=== PATIENT | male | born 1970 | race Caucasian/White ===

== ENCOUNTER 2017-07-30 06:37 | Emergency (ER) | payer OTHER ==
[2017-07-30] MEDS ORDERED: Sodium Chloride 0.9% 1,000 ML IV ONE (06:41)
[2017-07-30] MEDS ORDERED: Ketorolac 30 MG/ML SDV IVPUSH ONE (06:41)
--- NOTE | 2017-07-30 06:43 | EDM.PDOC ---
<Tuan Valdovinos J - Last Filed: 07/30/17 06:41> ED HPI GENERAL MEDICAL PROBLEM - General Chief Complaint: Back Pain or Injury Stated Complaint: BACK PAIN Time Seen by Provider: 07/30/17 06:40 - History of Present Illness INITIAL COMMENTS - FREE TEXT/NARRATIVE: HISTORY AND PHYSICAL: History of present illness: Patient 47-year-old white male who is recovering drug addict was no other medical history who presents with cervix acute low back pain he states this occurred when he bent over this morning put on his socks he denies prior episodes of back pain he states this is so severe that he has difficulty walking he denies incontinence or retention bowel or bladder numbness he denies recent trauma denies urinary symptoms nausea vomiting fever chills abdominal pain or other complaints Review of systems: As per history of present illness and below otherwise all systems reviewed and negative. Past medical history: As per history of present illness and as reviewed below otherwise noncontributory. Surgical history: As per history of present illness and as reviewed below otherwise noncontributory. Social history: No reported history of drug or alcohol abuse. Family history: As per history of present illness and as reviewed below otherwise noncontributory. Physical exam: HEENT: Atraumatic, normocephalic, pupils reactive, negative for conjunctival pallor or scleral icterus, mucous membranes moist, throat clear, neck supple, nontender, trachea midline. Lungs: Clear to auscultation, breath sounds equal bilaterally, chest nontender. Heart: S1S2, regular, negative for clicks, rubs, or JVD. Abdomen: Soft, nondistended, nontender. Negative for masses or hepatosplenomegaly. Negative for costovertebral tenderness. Pelvis: Stable nontender. Genitourinary: Deferred. Rectal: Deferred. Extremities: Atraumatic, negative for cords or calf pain. Neurovascular unremarkable. Neuro: Awake, alert, oriented. Cranial nerves II through XII unremarkable. Cerebellum unremarkable. Motor and sensory unremarkable throughout. Exam nonfocal. Back: Patient is some tenderness in the paravertebral region at the level lumbar spine no vertebral body or point tenderness he does have difficulty standing but is able to stand with some assistance and is able to get up on his toes and back on his heels. Motor and sensory are grossly unremarkable but limited Diagnostics: CT lumbar spine UA Therapeutics: Toradol 30 mg IV patient declined narcotic analgesia Impression: #1 acute low back pain #2 history of drug dependency Definitive disposition and diagnosis as appropriate pending reevaluation and review of above. - Related Data Allergies Allergy/AdvReac Type Severity Reaction Status Date / Time dust Allergy Sneezing Uncoded 07/30/17 06:39 Home Meds: Home Meds Fexofenadine [Shira] 10 mg PO DAILY PRN 04/08/14 [History] Fluticasone Propionate [Flonase] 1 spr INH DAILY 07/30/17 [History] Social & Family History - Tobacco Use Years of Tobacco use: 21 - Alcohol Use Days Per Week of Alcohol Use: 1 Number of Drinks Per Day: 1 Total Drinks Per Week: 1 - Recreational Drug Use Recreational Drug Use: No ED ROS GENERAL - Review of Systems Review Of Systems: ROS reveals no pertinent complaints other than HPI. ED EXAM, GENERAL - Physical Exam Exam: See Below (See dictation) Course - Vital Signs Last Recorded V/S: Last Vital Signs Temp 36.6 C 07/30/17 06:37 Pulse 96 07/30/17 06:37 Resp 20 07/30/17 06:37 BP 133/1 L 07/30/17 06:37 Pulse Ox 97 07/30/17 06:37 - Orders/Labs/Meds Orders: Active Orders 24 hr Category Date Time Status Lumbar Spine wo Cont [CT] Stat Exams 07/30/17 06:40 Taken URINALYSIS W/MICROSCOPIC [UA W/MICROSCOPIC] [URIN] Stat Lab 07/30/17 06:42 Uncollected methylPREDNISolone Sod Succ [Solu-MEDROL] Med 07/30/17 08:02 Once 125 mg IVPUSH ONETIME ONE Meds: Medications Discontinued Medications Generic Name Dose Route Start Last Admin Trade Name Freq PRN Reason Stop Dose Admin Sodium Chloride 1,000 mls @ 999 mls/hr 07/30/17 06:41 07/30/17 06:50 Normal Saline IV 07/30/17 07:41 999 mls/hr .Bolus ONE Administration Ketorolac Tromethamine 30 mg 07/30/17 06:41 07/30/17 06:50 Toradol IVPUSH 07/30/17 06:42 30 mg ONETIME ONE Administration Departure - Departure Disposition: Home, Self-Care 01 Clinical Impression: Lumbar disc disease, Acute lumbar back pain - Discharge Information Referrals: PCP,None [Primary Care Provider] - Forms: ED Department Discharge Additional Instructions: The following information is given to patients seen in the emergency department who are being discharged to home. This information is to outline your options for follow-up care. We provide all patients seen in our emergency department with a follow-up referral. The need for follow-up, as well as the timing and circumstances, are variable depending upon the specifics of your emergency department visit. If you don't have a primary care physician on staff, we will provide you with a referral. We always advise you to contact your personal physician following an emergency department visit to inform them of the circumstance of the visit and for follow-up with them and/or the need for any referrals to a consulting specialist. The emergency department will also refer you to a specialist when appropriate. This referral assures that you have the opportunity for followup care with a specialist. All of these measure are taken in an effort to provide you with optimal care, which includes your followup. Under all circumstances we always encourage you to contact your private physician who remains a resource for coordinating your care. When calling for followup care, please make the office aware that this follow-up is from your recent emergency room visit. If for any reason you are refused follow-up, please contact the [facility] emergency department at and ask to speak to the emergency department charge nurse. [facility] Primary care- Internal Medicine and Family [address] [address] Please monitor your symptoms and please call and get a all up appointment in our clinic as we discussed for further evaluation imaging and care as indicated. Use all medications as prescribed. Rest and try to do all activities slowly and carefully. Return to ER as needed and as discussed - My Orders Last 24 Hours: My Active Orders 07/30/17 08:02 methylPREDNISolone Sod Succ [Solu-MEDROL] 125 mg IVPUSH ONETIME ONE - Assessment/Plan Last 24 Hours: My Active Orders 07/30/17 08:02 methylPREDNISolone Sod Succ [Solu-MEDROL] 125 mg IVPUSH ONETIME ONE <Krystal Aguirre - Last Filed: 07/30/17 08:04> ED HPI GENERAL MEDICAL PROBLEM - History of Present Illness INITIAL COMMENTS - FREE TEXT/NARRATIVE: This is Dr. Aguirre dictating an addendum note as I assumed care of this patient at 7 AM. Agree with history of physical as above and the patient tells me he has been drug free for 7 years and that he does a lot of heavy lifting twisting and moving with his job. Patient says he has had back pain in the past but is never been to this level but he admits he doesn't necessarily exhibit good body mechanics with his job. He has no bowel or bladder disturbances and fact had a normal urination this morning before coming here. Patient is very resistant to use medications for pain due to his history but he has sporadically used a muscle relaxer in the past and is open to that along with anti-inflammatories for pain management. He has no systemic complaints of fevers or chills no urinary complaints and he says the back pain is more on the left side than the right and that initially when it started there was a shooting pain but he does not have that now. He has no neurosensory changes in his legs no weakness in his legs and twisting and position changes make the pain worse. He is most comfortable sitting in the bed but if he tries to lay down or stand up he says the pain gets worse and waxes and wanes in intensity. Patient denies any abdominal pain. On my evaluation there are no midline step- offs tenderness defects of the thoracic or lumbar spine and there is some reproducibility of the paraspinal musculature on palpation but I cannot totally reproduce the pain. There is no CVA tenderness. He has no muscle weakness dorsi and plantar flexion are intact 5/5 inclusive of the great toe and he denies any sensory changes nor is any exhibited here. He has normal tone throughout his extremities. CT scan does exhibit some mild degenerative changes as well as a mild disc bulge at L4-L5. I will discuss these test results with him and place him on a nonsteroidal anti-inflammatory medication along with a muscle relaxer and a Medrol Dosepak. I will give him a dose of Solu-Medrol here in the ER. I strongly advised the patient follow-up in our clinic as the symptoms may progress or evolving and he may have repeated episodes going forward that may mandate further evaluation. I discussed with him reasons to return to the ED. I will check the UA results prior to the patient's departure and treat appropriately Impression: Acute lower back pain with mild disc bulge/disc disease stable Lower Back Pain Score (Numeric/FACES): 10 Departure - Departure Time of Disposition: 08:25 Condition: Good - My Orders Last 24 Hours: My Active Orders 07/30/17 08:02 methylPREDNISolone Sod Succ [Solu-MEDROL] 125 mg IVPUSH ONETIME ONE - Assessment/Plan Last 24 Hours: My Active Orders 07/30/17 08:02 methylPREDNISolone Sod Succ [Solu-MEDROL] 125 mg IVPUSH ONETIME ONE
[2017-07-30] MEDS ORDERED: methylPREDNISolone Sodium Succinate 125 MG/2 ML SDV IVPUSH ONE (08:02)
--- NOTE | 2017-07-30 15:37 | CT ---
EXAM DATE: 07/30/17 PATIENT'S AGE: 47 Patient: SALO CASTLE Facility: [place], [place] Site . Site : [id number] Study: CT Spine Lumbar [id number] 7:08:42 AM Ordering Physician: Doctor Buck Final Report: INDICATION: Low back pain. Technique: CT lumbar spine performed without oral IV contrast including axial, coronal and sagittal images. Findings: No acute fracture or significant subluxation in lumbar spine. Mild degenerative hypertrophic changes in the lumbar spine. Mild narrowing of the L4 and L1 interspaces. Small benign bone island left pelvic bones. Mild central spinal stenosis in the lower lumbar spine with mild disc bulging at L4 and L5. Otherwise negative. Impression: 1. Mild degenerative and hypertrophic changes in the lumbar spine with mild narrowing of the L1 and L4 interspaces. 2. Mild disc bulging at L4 and L5 with mild central spinal stenosis in the lower lumbar spine. 3. No acute fracture or subluxation in lumbar spine. 4. Consider MRI of the lumbar spine if the low back pain persists or progresses or if there are radicular symptoms. Please note that all CT scans at this facility use dose modulation, iterative reconstruction, and/or weight-based dosing when appropriate to reduce radiation dose to as low as reasonably achievable. Dictated by Gorge Kramer MD @ Jul 30 2017 7:32AM (Electronic Signature) Report Signed by Proxy. [email or web address]
== END 2017-07-30 08:45 | disposition home or self-care (01) ==
LOC: MW.ED 06:37
DX: M51.86 Other intervertebral disc disorders, lumbar region (principal); Z79.899 Other long term (current) drug therapy; Z91.048 Other nonmedicinal substance allergy status
CPT/HCPCS: 72131; 81001; 96361; 96374; 96375; 99284; J1885; J2930; J7040; 99282